=== PATIENT | female | born 1975 | race Two or more races ===

== ENCOUNTER 2024-12-15 10:56 | Emergency (ER) | payer OTHER, SELFPAY ==
[2024-12-15 11:02] VITALS: BP 126/80; PULSE 104; RESP 19; TEMP 36.9; O2SAT 100; BMI 24.7
--- NOTE | 2024-12-15 11:15 | EDNOTE_ITS ---
<Statement entered by Chloe Chang MD - 12/15/24 15:16> As co-signing physician, I was present and available for consult prn. I concur with the plan and care as documented by the midlevel provider. Upper Respiratory Inf. RME/HPI General Chief Complaint: Nausea/Vomiting/Diarrhea Stated Complaint: Vomiting today, RICHEY, cough X 2 days Time Seen by Provider: 12/15/24 11:12 Source: patient Arrival date/time: 12/15/24 10:56 49-year-old female with no known medical history presents to the emergency room with a chief complaint of a headache, cough, vomiting x 2 days Mode of arrival: ambulatory Limitations: no limitations Related Data Home Medications ?Medication ?Instructions ?Recorded ?Confirmed phenazopyridine 100 mg tablet 100 mg PO TID 07/11/22 0 07/11/22 (Pyridium) Previous Rx's ?Medication ?Instructions ?Recorded acetaminophen 325 mg capsule 650 mg (2 x 325 mg) PO QI D PRN 12/15/24 fever or pain 7 days #30 caps albuterol sulfate 90 mcg/actuation 2 puff inhalation Q 6H PRN 12/15/24 aerosol inhaler (Ventolin HFA) shortness of breath or wheezing #6.7 grams ondansetron 4 mg disintegrating 4 mg PO Q8H PRN nausea and 12/15/24 tablet vomiting #14 tabs Allergies Allergy/AdvReac Type Severity Reaction Status Date / Time No Known Allergies Allergy Verified 12/15/24 11:00 Review of Systems Review of Systems Systems Reviewed: All systems reviewed, normal except as documented Constitutional Constitutional: Reports system reviewed and no additional complaints, except as documented, Denies fatigue, Denies fever(s), Denies headache(s) and Denies weakness Eyes Eyes: Reports system reviewed and no additional complaints, except as documented, Denies blurry vision and Denies change in vision ENT Ears, Nose, Mouth, and Throat: Reports system reviewed and no additional complaints, except as documented, Denies otalgia, Denies headache(s), Reports nasal congestion, Denies throat swelling and Denies vertigo Cardiovascular Cardiovascular: Reports system reviewed and no additional complaints, except as documented, Denies chest pain, Denies dyspnea and Denies dyspnea on exertion Respiratory Respiratory: Reports system reviewed and no additional complaints, except as documented, Denies chest congestion, Reports cough, Denies dyspnea, Denies dyspnea on exertion and Denies wheezing Gastrointestinal Gastrointestinal: Reports system reviewed and no additional complaints, except as documented, Denies abdominal pain, Denies cramping, Denies nausea and Reports vomiting Genitourinary Genitourinary: Reports system reviewed and no additional complaints, except as documented Musculoskeletal Musculoskeletal: Reports system reviewed and no additional complaints, except as documented and Denies back pain Integumentary/Breasts Skin/Breast: Reports system reviewed and no additional complaints, except as documented and Denies wounds Neurologic Neurologic: Reports system reviewed and no additional complaints, except as documented, Denies confusion, Denies headache(s), Denies lack of coordination, Denies vertigo and Denies weakness Psychiatric Psychiatric: Reports system reviewed and no additional complaints, except as documented, Denies anxiety, Denies confusion, Denies depression, Denies paranoia, Denies suicidal ideation and Denies tactile hallucinations Endocrine Endocrine: Reports system reviewed and no additional complaints, except as documented and Denies fatigue Hematologic/Lymphatic Hematologic/Lymphatic: Reports system reviewed and no additional complaints, except as documented and Denies lymphadenopathy Allergic/Immunologic Allergic/Immunologic: Reports system reviewed and no additional complaints, except as documented, Denies throat swelling, Denies urticaria and Denies wheezing Past Medical History Past Medical History CARDIAC: Negative Congestive Heart Failure RESPIRATORY: Negative Chronic Obstructive Pulmonary Disease (COPD) GENITOURINARY: Negative Renal Disease ENDOCRINE: Negative Diabetes Mellitus Type 1 or Diabetes Mellitus Type 2 Social History SMOKING STATUS: Never smoker SUBSTANCE USE: does not use ED Exam General Limitations: Present no limitations General appearance: Present alert and in no apparent distress Head Head exam: Present atraumatic Eye Eye exam: Present normal appearance, PERRL and EOMI ENT ENT exam: Present normal exam, normal oropharynx and mucous membranes moist Neck Neck exam: Present normal inspection, full ROM and trachea midline Chest Chest inspection: Present normal inspection and symmetric chest wall rise Respiratory Respiratory exam: Present normal lung sounds bilaterally; Absent respiratory distress, wheezes, stridor, accessory muscle use or prolonged expiratory phase Cardiovascular Cardiovascular exam: Present regular rate, normal rhythm and normal heart sounds; Absent tachycardia Abdominal Exam Abdominal exam: Present soft and normal bowel sounds; Absent tenderness Extremities Exam Extremities exam: Present normal inspection and full ROM Back Exam Back exam: Present normal inspection and full ROM Neurological Exam Neurological exam: Present alert, oriented X3 and CN II-XII intact Psychiatric Psychiatric exam: Present normal affect and normal mood Skin Skin exam: Present warm, dry, intact and normal color Course Quality Measures none Vital Signs Vital signs: Vital Signs Temperature 98.5 F 12/15/24 11:02 Pulse Rate 104 H 12/15/24 11:02 Respiratory Rate 19 12/15/24 11:02 Blood Pressure 126/80 12/15/24 11:02 Pulse Oximetry (%) 100 12/15/24 11:02 Oxygen Delivery Method Room Air 12/15/24 11:02 Upper Respiratory Infection MDM Narrative MDM Narrative:: 49-year-old female with no known medical history presents to the emergency room with a chief complaint of a headache, cough, vomiting x 2 days Patient is hemodynamically stable and in no apparent distress. She is afebrile O2 saturation 100% on room air and not tachypneic Physical examination shows clear bilateral lung sounds. Patient has no wheezing stridor or any abnormal breath sounds. Patient has a soft nontender abdomen. Patient tested positive for COVID-19 Patient was discharged and educated to follow-up with primary care provider in the next 24 to 48 hours and return to the emergency room for any evidence of worsening signs or symptoms Patient data External records reviewed:: [facility] previous records Clinical information provided by:: patient Social determinants that could affect healthcare access:: none Patient has the following chronic illnesses:: No chronic illness How is presenting disease/condition affected by chronic disease/condition?: no chronic disease Evaluation data The following diagnostics were reviewed and interpreted by me:: lab results and radiology exam(s) Lab and/or radiology exams considered but not ordered:: Labs and radiology exams considered and ordered Interpretation Summary: N/A Medications / Prescriptions Medications or Prescriptions considered but not ordered:: N/A Medication administrations:: N/A Consultations Consultation(s) initiated? (list below): No Diagnosis Upper Respiratory Differential Diagnosis: upper respiratory infection, viral infection, bronchitis, influenza and other Most likely diagnosis given after review of the tests above:: COVID-19 Admission Indicated Admission indicated?: not indicated Admission Request Was there a request for admission?: No Disposition Plan Disposition Plan: Discharge Discharge Attestation Discharge Attestation: The patient and all family members were given an opportunity to ask questions and understood the discharge instructions. Discharge instructions specifically effects, indications for sooner follow up or return to the emergency department, and the expected course of current diagnosis. Patient condition: Stable Discharge Plan Plan Patient Disposition: HOME (Self Care) Discharge Disposition comment: Stable Prescriptions/Referrals Prescriptions/Med Rec: New acetaminophen 325 mg capsule 650 mg PO QID PRN (Reason: fever or pain) 7 Days Qty: 30 0RF albuterol sulfate [Ventolin HFA] 90 mcg/actuation HFA aerosol inhaler 2 puff inhalation Q6H PRN (Reason: shortness of breath or wheezing) Qty: 6.7 0RF ondansetron 4 mg tablet,disintegrating 4 mg PO Q8H PRN (Reason: nausea and vomiting) Qty: 14 0RF No Action phenazopyridine [Pyridium] 100 mg Tablet 100 mg PO TID Problem List Clinical Impression: COVID-19 Patient/Caregiver Discharge Instructions Education Materials: 2019-nCoV Additional Instructions: Please follow-up with your primary care provider in the next 24 to 48 hours. You tested positive for COVID-19. The treatment for this is symptom management. Please continue to take Tylenol and ibuprofen for fever management. Please increase your oral fluid intake. For any evidence of worsening signs or symptoms please return to the emergency room immediately Print Language: Bulgarian Stand Alone Forms: Sarah Award Info., Patient Portal Info Letter PA/DIO Supervising Physician CLAY/DIO Supervising Physician: Dr. CHANG
== END 2024-12-15 11:30 | disposition home or self-care (01) ==
LOC: SERX 11:26
PROVIDERS: Emergency Provider Emergency Medicine; PCP Nurse Practitioner Family
DX: U07.1 COVID-19 (principal)
CPT/HCPCS: 87811; 99282